=== PATIENT | female | born 1955 | race Two or more races ===

== ENCOUNTER → 2018-12-27 | Outpatient (CLI) | payer OTHER ==
[~2018-12-27] MED LIST: EVISTA60 MG; FLAX SEED OIL1000 MG
== END | disposition home or self-care (01) ==
LOC: MRI 10:45
DX: M50.20 Other cervical disc displacement, unspecified cervical region (principal); M50.30 Other cervical disc degeneration, unspecified cervical region
CPT/HCPCS: 72141

== ENCOUNTER 2021-02-19 06:02 | Day surgery (SDC) | payer OTHER | END 2021-02-19 12:00 | disposition home or self-care (01) | LOC: AMB-ENDOS 06:02 | PROVIDERS: ATTEND Internal Medicine Gastroenterology | DX: D12.2 Benign neoplasm of ascending colon (principal); Z20.822 Contact with and (suspected) exposure to COVID-19 ==